=== PATIENT | female | born 1945 | race Caucasian/White ===

== ENCOUNTER 2017-04-01 14:46 | Outpatient (CLI) | payer MEDICARE, OTHER ==
--- NOTE | 2017-04-01 22:18 | XRay Report ---
FINAL REPORT EXAM: XR CHEST ROUTINE 2V HISTORY: BRONCHITIS TECHNIQUE: Two views of the chest Comparison: None FINDINGS: Normal heart size. Patchy lingular infiltrate is present. There is prominent epicardial fat. Lungs are hyperlucent and hyperexpanded with bilateral fine reticular interstitial prominence and bronchovascular thickening compatible with mild chronic bronchitis. Aorta is atherosclerotic. Pulmonary arteries are slightly prominent compatible with emphysema and mild chronic interstitial disease. There is multilevel degenerative spondylosis and flowing osteophytosis of DISH. There appear to be old healed fractures of the right posterior costovertebral margins versus degenerative change in these locations. IMPRESSION: Emphysema with mild primarily bilateral basal fibrosis but mild diffuse coarsening of the interstitium. Patchy lingular infiltrate.
== END 2017-04-01 14:47 | disposition home or self-care (01) ==
LOC: XRAY 14:46
PROVIDERS: ATTEND Internal Medicine
DX: J43.9 Emphysema, unspecified (principal); J45.909 Unspecified asthma, uncomplicated; J40 Bronchitis, not specified as acute or chronic; I70.0 Atherosclerosis of aorta; M47.894 Other spondylosis, thoracic region; M25.78 Osteophyte, vertebrae
CPT/HCPCS: 71046